=== PATIENT | female | born 1985 | race Caucasian/White ===

== ENCOUNTER 2018-01-15 10:58 | Emergency (ER) | payer BC ==
[2018-01-15] MEDS ORDERED: fentaNYL* 50 MCG/ML 2 ML VIAL (100 MCG VIAL) IV ONE (11:31)
[2018-01-15] MEDS ORDERED: NS 0.9% 1000 ML* 1,000 ML IV ONE (11:31)
[2018-01-15] MEDS ORDERED: Ondansetron INJ* 2 MG/ML VIAL IV ONE (11:31)
[2018-01-15 12:17] LABS: ABS Basophils 0 10^3/ul (0-0.2); ABS Eosinophils 0.1 10^3/ul (0-0.6); ABS Lymphocytes 1.9 10^3/ul (1.0-4.8); ABS Monocytes 0.3 10^3/ul (0-0.8); ABS Nucleated RBC 0 10^3/ul; Eosinophil % 2.3 % (0-6); Hematocrit 41 % (35-47); Hemoglobin 13.4 g/dl (12.0-16.0); Lymphocyte % 29.5 % (25-47); Mean Corpuscular HGB Conc 33 g/dl (31-36); Mean Corpuscular Hemoglobin 30 pg (27-31); Mean Corpuscular Volume 91 fL (80-97); Mean Platelet Volume 7.9 um3 (7.4-10.4); Nucleated Red Blood Cells % 0.1; Platelet Count 195 10^3/ul (150-450); Red Blood Count 4.46 10^6/ul (4.0-5.4); Red Cell Distribution Width 16 % (10.5-15); White Blood Count 6.3 10^3/ul (3.5-10.8)
[2018-01-15 12:36] LABS: EGFR Non-African American 145.4 (>60)
[2018-01-15 12:55] LABS: Urine Appearance Cloudy; Urine Blood 2+ (Negative); Urine Color Yellow; Urine Ketones Negative (Negative); Urine Protein Negative (Negative); Urine Specific Gravity 1.004 (1.010-1.030); Urine Urobilinogen Negative (Negative)
[2018-01-15] MEDS ORDERED: Iohexol 300* (CONTRAST) 10 ML SDV IV ONE (13:25)
--- NOTE | 2018-01-15 14:29 | RAD ---
CLINICAL HISTORY: Abdominal pain COMPARISON: February 02, 2013 TECHNIQUE: Multiple contiguous axial CT scans were obtained of the abdomen and pelvis after the administration of intravenous contrast. Coronal and sagittal multiplanar reformations are submitted for review. Oral contrast was administered. Delayed images were obtained through the abdomen and pelvis. FINDINGS: LUNG BASES: The lung bases are clear. LIVER: The liver is diffusely low in attenuation compared to the spleen. There are no focal hepatic parenchymal masses. BILE DUCTS: There is no intrahepatic or extrahepatic biliary dilatation. GALLBLADDER: The gallbladder is normal, without pericholecystic inflammatory change. PANCREAS: The pancreas is normal, without mass or ductal dilatation. SPLEEN: The spleen is at the upper limits of normal in size. UPPER GI TRACT: Evaluation of the gastrointestinal tract is limited by incomplete gastric distention. The upper GI tract is unremarkable. SMALL BOWEL AND MESENTERY: The small bowel is normal in contour, course, and caliber. There is no obstruction or dilatation. COLON: The colon is normal in contour, course, caliber. There is no pericolonic inflammatory change. There is a large amount of stool within the colon. ADRENALS: Normal bilaterally. KIDNEYS: The kidneys are normal in shape, size, contour, and axis. There is no hydronephrosis or nephrolithiasis. BLADDER: A suprapubic catheter is noted. PELVIC ORGANS: The uterus and adnexa are grossly normal for technique. AORTA: The aorta is normal. IVC: An IVC filter is noted. LYMPH NODES: There is no lymphadenopathy by size criteria. ABDOMINAL WALL: There is no evidence for abdominal wall hernia. BONES AND SOFT TISSUES: There is diffuse osteopenia. The patient is status post internal fixation of the left femur. There is moderate osteoarthritis of the hips. An intrathecal catheter is noted along the spine OTHER: An implantable pump is noted along the right anterior abdomen. IMPRESSION: 1. FATTY INFILTRATION OF THE LIVER. 2. SUPRAPUBIC CATHETER. 3. IVC FILTER. 4. DEGENERATIVE CHANGES. 5. NO ACUTE CT PATHOLOGY OF THE VISUALIZED ABDOMEN OR PELVIS.
[2018-01-15] MEDS ORDERED: fentaNYL* 50 MCG/ML 2 ML VIAL (100 MCG VIAL) IV SLOW PU ONE (14:36)
[2018-01-15] MEDS ORDERED: Sodium Phosphate ADULT ENEMA* 118 ml bottle PR ONE (15:11)
[2018-01-15] MEDS ORDERED: Magnesium CITRATE* 300 ML BTL PO ONE (15:11)
[2018-01-15 15:51] VITALS: BP 122/80
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
== END 2018-01-15 15:48 | disposition home or self-care (01) ==
LOC: ED 10:58
DX: R10.84 Generalized abdominal pain (principal); K59.00 Constipation, unspecified; Z32.02 Encounter for pregnancy test, result negative; K76.0 Fatty (change of) liver, not elsewhere classified; I31.9 Disease of pericardium, unspecified; N31.9 Neuromuscular dysfunction of bladder, unspecified; Z87.891 Personal history of nicotine dependence
CPT/HCPCS: 36415; 74177; 80053; 81003; 81015; 83690; 84702; 85025; 86140; 87086; 96361; 96374; 96375; 96376; 99284; A9270-GY; J2405; J3010; Q9967

== ENCOUNTER 2018-04-13 20:04 | Emergency (ER) | payer BC ==
[2018-04-13] MEDS ORDERED: NS 0.9% 1000 ML* 1,000 ML IV ONE (20:36)
[2018-04-13] MEDS ORDERED: HYDROmorphone INJ* 1 MG/ML CARPUJECT SYRINGE IV SLOW PU ONE (20:39)
[2018-04-13] MEDS ORDERED: tiZANidine TAB* 2 MG PO ONE (20:47)
[2018-04-13] MEDS ORDERED: HYDROmorphone INJ* 2 MG/ML CARPUJECT SYRINGE ONE (20:49)
[2018-04-13] MEDS ORDERED: HYDROmorphone INJ* 2 MG/ML CARPUJECT SYRINGE IV SLOW PU ONE (21:00)
[2018-04-13 21:26] LABS: ABS Basophils 0 10^3/ul (0-0.2); ABS Eosinophils 0.3 10^3/ul (0-0.6); ABS Lymphocytes 2.5 10^3/ul (1.0-4.8); ABS Monocytes 0.4 10^3/ul (0-0.8); ABS Neutrophils 3.9 10^3/ul (1.5-7.7); ABS Nucleated RBC 0 10^3/ul; Eosinophil % 4.3 % (0-6); Hematocrit 40 % (35-47); Hemoglobin 13.5 g/dl (12.0-16.0); Lymphocyte % 34.7 % (25-47); Mean Corpuscular HGB Conc 34 g/dl (31-36); Mean Corpuscular Hemoglobin 30 pg (27-31); Mean Corpuscular Volume 89 fL (80-97); Nucleated Red Blood Cells % 0.1; Platelet Count 198 10^3/ul (150-450); Red Blood Count 4.47 10^6/ul (4.00-5.40); Red Cell Distribution Width 15 % (10.5-15); White Blood Count 7.2 10^3/ul (3.5-10.8)
[2018-04-13 21:33] LABS: INR 1.03 (0.77-1.02)
[2018-04-13 21:36] LABS: EGFR Non-African American 160.5 (>60)
--- NOTE | 2018-04-13 21:38 | RAD ---
Indication: Seizure. History of seizure disorder. Previous brain contusion /traumatic injury /spinal cord injury. Comparison: August 11, 2014 Technique: Noncontrast CT vertex of skull through foramen magnum. Report: Large region of encephalomalacia at the RIGHT frontal lobe is chronic. Associated asymmetric enlargement of the frontal horn of the RIGHT lateral ventricle. No new region of plaza matter white matter obscuration or intracranial hemorrhage evident. Negative for mass effect. Negative for sulcal effacement. Patent basal cisterns. Unremarkable partially visualized orbital contents. Unremarkable calvarium and skull base. Clear visualized paranasal sinuses and mastoid air spaces. Unremarkable scalp. IMPRESSION: #. No CT evidence for acute intracranial abnormality. #. 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
[2018-04-13 21:46] LABS: Urine Appearance Clear; Urine Blood 1+ (Negative); Urine Color Straw; Urine Ketones Negative (Negative); Urine Protein Negative (Negative); Urine Specific Gravity 1.003 (1.010-1.030); Urine Urobilinogen Negative (Negative)
[2018-04-13] MEDS ORDERED: Ondansetron ODT TAB* 4 MG PO ONE (22:11)
[2018-04-13] MEDS ORDERED: Topiramate TAB(*) 100 MG ONE (22:13)
[2018-04-13] MEDS ORDERED: Ondansetron ODT TAB* 4 MG ONE (22:13)
[2018-04-13 22:15] VITALS: BP 105/64
[2018-04-13] MEDS ORDERED: Topiramate TAB(*) 100 MG PO ONE (22:15)
[2018-04-13] MEDS: Topiramate TAB(*) 100 MG PO ONE (22:16)
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
== END 2018-04-13 22:42 | disposition home or self-care (01) ==
LOC: ED 20:04
DX: R56.9 Unspecified convulsions (principal); Z87.891 Personal history of nicotine dependence
CPT/HCPCS: 36415; 70450; 80053; 80320; 81003; 81015; 83735; 84484; 84702; 85025; 85610; 85730; 87086; 93005; 96374; 96376; 99284; A9270-GY; G0480; J1170

== ENCOUNTER 2018-05-12 15:13 | Emergency (ER) | payer BC ==
[2018-05-12] MEDS ORDERED: NS 0.9% 1000 ML* 1,000 ML IV ONE (15:37)
[2018-05-12] MEDS ORDERED: Acetaminophen TAB* 325 MG PO ONE (15:43)
--- NOTE | 2018-05-12 15:48 | ED ---
Syncope/Near Syncope - HPI Summary HPI Summary: This is zack Portillo documenting for attending Dr. Quintin Spence This patient is a 33 year old F presenting to [facility] accompanied by 2 friends with a chief complaint of sz since 1500. Friends witnessed 3x tonic clonic szs, 2 at home, 1 en route in the ambulance. Pt was given 5 mg versed by EMS. According to her friends, pt was in bed, wanted to get up but hand was numb, experienced arm spasm, numbness in arm, face, and chest. Once in living room, eyes fluttering, convulsions started. PMHx paraplegic, szs. Pt denies missing any medication doses. She notes that she started Rexult this AM for PMHx depression. - History Of Current Complaint Chief Complaint: EDSeizure Time Seen by Provider: 05/12/18 15:25 Hx Obtained From: Patient, Family/Stress Test Technician Onset/Duration: Sudden Onset, Resolved Timing: Seconds - seconds Context: Witnessed, Loss Of Consciousness Activity At Onset: At Rest Associated Head Trauma: No Aggravating Factor(s): Nothing Alleviating Factor(s): Nothing Associated Signs And Symptoms: Seizure Frequency: Episodes x___ - 3 - Allergies/Home Medications Allergies/Adverse Reactions: Allergies Allergy/AdvReac Type Severity Reaction Status Date / Time Morpholine Analogues Allergy Intermediate Hives Verified 05/12/18 15:29 PMH/Surg Hx/FS Hx/Imm Hx Endocrine/Hematology History: Denies: Hx Diabetes Cardiovascular History: Reports: Other Cardiovascular Problems/Disorders - pericarditis Denies: Hx Hypertension Respiratory History: Reports: Hx Pneumonia - HX PNEUMONIA MULTIPLE TIMES, Other Respiratory Problems/Disorders - lung puncture with colapse with water seal GI History: Reports: Other GI Disorders - nausea with pain new lump on abdomen History: Reports: Other Problems/Disorders - neurogenic bladder Denies: Hx Renal Disease Musculoskeletal History: Reports: Other Musculoskeletal History - wheel chair bound inj, spinal cord Sensory History: Denies: Hx Legally Blind, Hx Deafness Opthamlomology History: Denies: Hx Legally Blind EENT History: Denies: Hx Deafness Neurological History: Reports: Hx Seizures, Other Neuro Impairments/Disorders - 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 proceedures. Infectious Disease History: No Infectious Disease History: Denies: Traveled Outside the [place] in Last 30 Days - Family History Known Family History: Positive: Cardiac Disease - [place] - maternal grandfather, Other - hypothyroidism - mother - Social History Occupation: Disabled Alcohol Use: None Substance Use Type: Reports: None Smoking Status (MU): Former Smoker Review of Systems Negative: Fever Positive: incontinence Positive: Decreased ROM - paraplegic Positive: Numbness, Syncope - sz All Other Systems Reviewed And Are Negative: Yes Physical Exam - Summary Physical Exam Summary: Appearance: Well appearing, no pain distress Skin: warm, dry, reflects adequate perfusion Head/face: normal Eyes: EOMI, JENNIFER ENT: normal Neck: supple, non-tender Respiratory: CTA, breath sounds present Cardiovascular: RRR, pulses symmetrical Abdomen: non-tender, soft Bowel: present Musculoskeletal: paraplegic Neuro: paraplegic A&Ox3 Triage Information Reviewed: Yes Vital Signs On Initial Exam: Initial Vitals Temp Pulse Resp BP Pulse Ox 97.4 F 91 13 111/74 97 05/12/18 15:31 05/12/18 15:31 05/12/18 15:31 05/12/18 15:31 05/12/18 15:31 Vital Signs Reviewed: Yes Diagnostics - Vital Signs Vital Signs Temp Pulse Resp BP Pulse Ox 05/12/18 15:31 97.4 F 91 13 111/74 97 - Laboratory Result Diagrams: 05/12/18 15:52 05/12/18 15:52 Lab Statement: Any lab studies that have been ordered have been reviewed, and results considered in the medical decision making process. - Radiology CXR Xray Interpretation: Positive (See Comments) Radiology Interpretation Completed By: Radiologist - Subtle right basilar infiltrate. - EKG 1550 Cardiac Rate: NL - 89 EKG Rhythm: Sinus Rhythm ST Segment: Normal Ectopy: None EKG Interpretation: No acute changes. Re-Evaluation - Re-Evaluation First Eval Re-Evaluation Time: 16:57 Change: Improved Comment: Discussed discharge. Course/Dx Course Of Treatment: A 33-year-old F presents to the ED with a CC of sz at 1500. (+) 3x tonic-clonic episodes, numbness in hands, arms, face, chest. (-) missed med doses. PMHx paraplegia, sz, depression. A CXR reveals subtle right basilar infiltrate. An EKG reveals nl sinus rythym at 89 BPM, no acute changes. In the ED course, pt was given . - Diagnoses Differential Diagnosis/HQI/PQRI: Positive: Seizure, Other - pneumonia Provider Diagnoses: Seizures, Pneumonia - Physician Notifications Discussed Care of Patient With: Neftali Martin Time Discussed With Above Provider: 15:55 Instructed by Provider To: Other - Will see pt in the ED. Discharge - Sign-Out/Discharge Documenting (check all that apply): Patient Departure - Discharge - Discharge Plan Condition: Stable Disposition: HOME Prescriptions: Azithromycin TAB* [Zithromax TAB (Z-BRITTANY) 250 mg #6 tabs] 250 mg PO DAILY #4 tab lamoTRIgine TAB(*) [Lamictal TAB(*)] 250 mg PO BEDTIME #30 tab Patient Education Materials: Epilepsy (ED), Pneumonia (ED) Referrals: Macho Galdamez MD [Primary Care Provider] - 3 Days Additional Instructions: Return to the emergency department for any changes in mental status. - Billing Disposition and Condition Condition: STABLE Disposition: Home
[2018-05-12 16:19] LABS: ABS Basophils 0 10^3/ul (0-0.2); ABS Eosinophils 0.3 10^3/ul (0-0.6); ABS Lymphocytes 2.6 10^3/ul (1.0-4.8); ABS Monocytes 0.4 10^3/ul (0-0.8); ABS Neutrophils 2.7 10^3/ul (1.5-7.7); ABS Nucleated RBC 0 10^3/ul; Eosinophil % 4.5 % (0-6); Hematocrit 37 % (35-47); Hemoglobin 12.7 g/dl (12.0-16.0); Lymphocyte % 43.6 % (25-47); Mean Corpuscular HGB Conc 34 g/dl (31-36); Mean Corpuscular Hemoglobin 30 pg (27-31); Mean Corpuscular Volume 88 fL (80-97); Mean Platelet Volume 8.5 um3 (7.4-10.4); Nucleated Red Blood Cells % 0.1; Platelet Count 197 10^3/ul (150-450); Red Blood Count 4.23 10^6/ul (4.00-5.40); Red Cell Distribution Width 15 % (10.5-15); White Blood Count 5.9 10^3/ul (3.5-10.8)
[2018-05-12] MEDS ORDERED: lamoTRIgine TAB(*) 100 MG PO ONE ×2 (16:29→17:19)
--- NOTE | 2018-05-12 16:42 | RAD ---
INDICATION: CHF COMPARISON: August 13, 2015 TECHNIQUE: An AP portable view obtained at 1623 hours is submitted. FINDINGS: Bones/Soft Tissues: There are no acute bony findings. Cardiomediastinal: The cardiomediastinal silhouette is normal. The pulmonary vascularity is normal. Lungs: There are subtle infiltrate in the right lung base significant improved from earlier imaging.. Pleura: There are no pleural effusions. Other: None IMPRESSION: SUBTLE RIGHT BASILAR INFILTRATE.
[2018-05-12 16:44] LABS: EGFR Non-African American 155.5 (>60)
[2018-05-12] MEDS ORDERED: Azithromycin TAB* 250 MG PO ONE ×2 (16:54→17:19)
[2018-05-12 17:35] VITALS: BP 125/86
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
== END 2018-05-12 17:34 | disposition home or self-care (01) ==
LOC: ED 15:13
DX: G40.909 Epilepsy, unspecified, not intractable, without status epilepticus (principal); J18.9 Pneumonia, unspecified organism; G82.20 Paraplegia, unspecified; Z82.49 Family history of ischemic heart disease and other diseases of the circulatory system; Z83.49 Family history of other endocrine, nutritional and metabolic diseases; Z87.891 Personal history of nicotine dependence
CPT/HCPCS: 36415; 71045; 80053; 80175; 80201; 83735; 83880; 84484; 84702; 85025; 93005; 96360; 99284; A9270-GY

== ENCOUNTER 2018-08-09 14:21 | Emergency (ER) | payer BC ==
[2018-08-09] MEDS ORDERED: HYDROmorphone TAB* 2 MG PO ONE (14:37)
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
--- NOTE | 2018-08-09 15:57 | RAD ---
INDICATION: Left knee injury. TECHNIQUE: 2 views of the left knee were obtained. FINDINGS: The bones appear osteoporotic. The patient is status post operative reduction internal fixation. The distal portion of an intramedullary shavon transfixed with 2 distal surgical screws is noted in the distal femur. There is a partially visualized healed fracture of the distal femur. No joint effusion or acute fracture is seen. IMPRESSION: POSTSURGICAL CHANGES, NO EVIDENCE FOR ACUTE FRACTURE.
[2018-08-09 16:53] VITALS: BP 117/69
== END 2018-08-09 16:51 | disposition home or self-care (01) ==
LOC: ED 14:21
DX: S82.842A Displaced bimalleolar fracture of left lower leg, initial encounter for closed fracture (principal); V00.818A Other accident with wheelchair (powered), initial encounter; Y92.9 Unspecified place or not applicable; M85.872 Other specified disorders of bone density and structure, left ankle and foot; G83.89 Other specified paralytic syndromes; F32.9 Major depressive disorder, single episode, unspecified; Z72.0 Tobacco use
CPT/HCPCS: 99282; A9270-GY

== ENCOUNTER 2018-10-04 17:50 | Emergency (ER) | payer BC ==
[2018-10-04] MEDS ORDERED: LORazepam INJ* 2 MG/ML 1 ML VIAL ONE (18:03)
[2018-10-04] MEDS ORDERED: NS 0.9% 1000 ML* 1,000 ML IV ONE (18:05)
[2018-10-04] MEDS ORDERED: LORazepam INJ* 2 MG/ML 1 ML VIAL IV PUSH ONE (18:06)
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
[2018-10-04 18:30] LABS: ABS Basophils 0 10^3/ul (0-0.2); ABS Eosinophils 0.2 10^3/ul (0-0.6); ABS Lymphocytes 2.3 10^3/ul (1.0-4.8); ABS Monocytes 0.4 10^3/ul (0-0.8); ABS Neutrophils 2.8 10^3/ul (1.5-7.7); ABS Nucleated RBC 0 10^3/ul; Eosinophil % 3.3 %; Hematocrit 41 % (35-47); Hemoglobin 13.6 g/dl (12.0-16.0); Lymphocyte % 39.9 %; Mean Corpuscular HGB Conc 33 g/dl (31-36); Mean Corpuscular Hemoglobin 31 pg (27-31); Mean Corpuscular Volume 92 fL (80-97); Mean Platelet Volume 8.3 fL (7.4-10.4); Nucleated Red Blood Cells % 0; Platelet Count 196 10^3/ul (150-450); Red Blood Count 4.45 10^6/ul (4.00-5.40); Red Cell Distribution Width 15 % (10.5-15); White Blood Count 5.7 10^3/ul (3.5-10.8)
[2018-10-04 18:38] LABS: INR 0.97 (0.77-1.02)
[2018-10-04 18:39] LABS: Activated Partial Thrombo Time 33.7 seconds (26.0-36.3)
[2018-10-04] MEDS ORDERED: HYDROmorphone INJ* 2 MG/ML CARPUJECT SYRINGE IV SLOW PU ONE (18:40)
[2018-10-04 18:48] LABS: Albumin 3.8 g/dL (3.2-5.2); Albumin/Globulin Ratio 1.4 (1-3); Calcium 8.8 mg/dL (8.6-10.3); EGFR Non-African American 199.9 (>60); Globulin 2.8 g/dL (2-4); Magnesium 1.9 mg/dL (1.9-2.7); Potassium 3.9 mmol/L (3.5-5.0); Total Bilirubin 0.2 mg/dL (0.2-1.0); Total Protein 6.6 g/dL (6.4-8.9)
[2018-10-04 18:55] LABS: HCG Pregnancy 0.94 mIU/mL
[2018-10-04] MEDS ORDERED: HYDROmorphone INJ1* 1 MG/ML SYRINGE IV SLOW PU ONE (19:00)
[2018-10-04] MEDS ORDERED: Ondansetron INJ* 2 MG/ML VIAL IV ONE (19:25)
[2018-10-04 20:12] VITALS: BP 109/71
== END 2018-10-04 20:41 | disposition home or self-care (01) ==
LOC: ED 17:50
DX: G40.909 Epilepsy, unspecified, not intractable, without status epilepticus (principal); G83.9 Paralytic syndrome, unspecified; Z86.73 Personal history of transient ischemic attack (TIA), and cerebral infarction without residual deficits; V89.2XXS Person injured in unspecified motor-vehicle accident, traffic, sequela; I31.9 Disease of pericardium, unspecified; Z72.0 Tobacco use; G93.89 Other specified disorders of brain
CPT/HCPCS: 36415; 70450; 80053; 83735; 84702; 85025; 85610; 85730; 96361; 96374; 96375; 99284; J1170; J2060; J2405

== ENCOUNTER 2018-11-19 14:14 | Inpatient (IN) | payer BC ==
[2018-11-19] MEDS ORDERED: Albuterol 2.5 MG/3 ML NEB.SOL* (0.083%) INH PRN (15:01)
[2018-11-19] MEDS ORDERED: Levofloxacin 750 MG IVPREMIX(* 750 MG/150 ML BAG IVPB ONE (15:01)
[2018-11-19] MEDS ORDERED: NS 0.9% 1000 ML** 1,000 ML IV.FLUID IV ONE (15:01)
[2018-11-19] MEDS ORDERED: Ketorolac INJ* 30 MG/ML 1 ML VIAL IV ONE (15:01)
[2018-11-19] MEDS ORDERED: Piperacillin/Tazobac ADVAN(*) 3.375 GM in NS 0.9% 100 ML* 100 ML IVPB ONE (15:01)
--- NOTE | 2018-11-19 15:08 | ED ---
Shortness of Breath - HPI Summary HPI Summary: Patient is a 33-year-old female with a history of paraplegia since 2008% to the ED with worsening SOB, increased WOB, diaphoresis and distress. She was seen by her PCP last week and was placed on doxycycline. She has been on this medication 7 days. She was diagnosed with pneumonia from her PCP, however no x -ray was obtained at the time. Despite doxycycline, she has continued to worsen and now requires oxygen. D/t paraplegia she is unable to clear lungs well with cough. She endorses low grade subjective fevers, sweats and chills. Also endorses darkened urine. Endorses fatigue. Endorses chest pain with attempting to cough, but otherwise denies CP. - History of Current Complaint Time Seen by Provider: 11/19/18 15:00 Hx Obtained From: Patient, Family/Community Outreach Worker Onset/Duration: Gradual Onset Timing: Constant Current Severity: Severe Dyspnea At: Rest Aggrevating Factors: Deep Breaths, Recumbent Position Alleviating Factors: Oxygen, Upright Position - Risk Factors Pulmonary Embolism: Negative Cardiac: Negative - Allergy/Home Medications Allergies/Adverse Reactions: Allergies Allergy/AdvReac Type Severity Reaction Status Date / Time Morpholine Analogues Allergy Intermediate Hives Verified 05/12/18 15:29 PMH/Surg Hx/FS Hx/Imm Hx Previously Healthy: Yes Endocrine/Hematology History: Denies: Hx Diabetes Cardiovascular History: Reports: Other Cardiovascular Problems/Disorders - pericarditis Denies: Hx Hypertension Respiratory History: Reports: Hx Pneumonia - HX PNEUMONIA MULTIPLE TIMES, Other Respiratory Problems/Disorders - lung puncture with colapse with water seal GI History: Reports: Other GI Disorders - nausea with pain new lump on abdomen History: Reports: Other Problems/Disorders - neurogenic bladder Denies: Hx Renal Disease Musculoskeletal History: Reports: Other Musculoskeletal History - wheel chair bound inj, spinal cord; 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 proceedures. Infectious Disease History: Denies: Traveled Outside the [place] in Last 30 Days - Family History Known Family History: Positive: Cardiac Disease - [place] - maternal grandfather, Other - hypothyroidism - mother - Social History Occupation: Unemployed, Disabled Lives: With Family Alcohol Use: None Hx Substance Use: No Substance Use Type: Reports: None Hx Tobacco Use: Yes Smoking Status (MU): Light Every Day Tobacco Smoker Review of Systems Positive: Fatigue, Skin Diaphoresis. Negative: Fever, Chills Negative: Sore Throat, Ear Ache, Nasal Discharge Positive: Chest Pain Positive: Shortness Of Breath, Cough Negative: Abdominal Pain, Vomiting, Diarrhea, Nausea Genitourinary: Negative Positive: no symptoms reported, see HPI Negative: Arthralgia, Myalgia Skin: Negative Neurological: Negative All Other Systems Reviewed And Are Negative: Yes Physical Exam Triage Information Reviewed: Yes Vital Signs Reviewed: Yes Appearance: Positive: Ill-Appearing Skin: Positive: Warm, Skin Color Reflects Adequate Perfusion Head/Face: Positive: Normal Head/Face Inspection Eyes: Positive: EOMI, JENNIFER, Conjunctiva Clear ENT: Positive: Nasal congestion, Nasal drainage. Negative: Tonsillar swelling, Tonsillar exudate, Dental tenderness, Sinus tenderness Neck: Positive: Supple Respiratory/Lung Sounds: Positive: Rhonchi, Wheezes, Fatigue Cardiovascular: Positive: RRR, Pulses are Symmetrical in both Upper and Lower Extremities Musculoskeletal: Positive: Normal, Strength/ROM Intact Neurological: Positive: Sensory/Motor Intact, Alert, Oriented to Person Place, Time, Speech Normal Psychiatric: Positive: Normal, Affect/Mood Appropriate AVPU Assessment: Alert Diagnostics - Laboratory Result Diagrams: 11/19/18 15:42 11/19/18 15:42 Lab Statement: Any lab studies that have been ordered have been reviewed, and results considered in the medical decision making process. Course/Dx - Course Course Of Treatment: Patient is a 33-year-old paraplegic presenting to the ED with worsening SOB, increased WOB, difficulty with coughing, fevers, sweats, chills. She was seen by her PCP last week and was placed on doxycycline twice a day. She has been on this medication times sent days. She states despite the doxycycline, she continues to have worsening SOB and fatigue. She also endorses diaphoresis. She states due to her paraplegia, she is unable to cough up sputum. Endorses darkened urine. On arrival to the ED her sat was 82% on room air. Patient does not use O2 at home at baseline. She was immediately placed on 4L O2 which improved her sat to 94%. Duo-Neb given on arrival. Patient is afebrile at 99.4. Tachycardic on arrival at 107. Respirations 26. Influenza obtained and is positive. Based on VS, septic protocol initiated with zosyn, Levaquin and 2L fluids. Toradol given for chest pain. EKG: NSR. Trop 0.00. Chest x-ray obtained which shows: INTERVAL APPEARANCE OF ILL- DEFINED PATCHY DENSITY OVERLYING THE RIGHT LUNG DESCRIBED ABOVE. PHARYNGEAL DIAGNOSIS INCLUDES PNEUMONIA OR INFILTRATE. A FOLLOW-UP CHEST X-RAY AFTER AN APPROPRIATE COURSE OF THERAPY IS ADVISED TO ASCERTAIN RESOLUTION. Labs show no leukocytosis. Discussed case with hospitalist, Dr. Avina who agrees to admit. Still pending UA. - Diagnoses Differential Diagnosis/HQI/PQRI: Positive: Bronchitis Provider Diagnoses: Pneumonia, Influenza A - Physician Notifications Discussed Care of Patient With: Juan Carlos Avina Instructed by Provider To: Admit As Inpatient - Critical Care Time Critical Care Time: 30-74 min Discharge - Sign-Out/Discharge Documenting (check all that apply): Patient Departure Patient Received Moderate/Deep Sedation with Procedure: No - Discharge Plan Condition: Fair Disposition: ADMITTED TO [facility] Referrals: Macho Galdamez MD [Primary Care Provider] - - Billing Disposition and Condition Condition: FAIR Disposition: Admitted to [facility]
[2018-11-19 15:36] LABS: Influenza A Molecular POSITIVE (Negative)
[2018-11-19 15:50] LABS: ABS Basophils 0 10^3/ul (0-0.2); ABS Eosinophils 0.1 10^3/ul (0-0.6); ABS Monocytes 0.8 10^3/ul (0-0.8); ABS Neutrophils 7.4 10^3/ul (1.5-7.7); ABS Nucleated RBC 0 10^3/ul; Eosinophil % 1.1 %; Hematocrit 41 % (35-47); Hemoglobin 13.6 g/dl (12.0-16.0); Lymphocyte % 19.1 %; Mean Corpuscular HGB Conc 34 g/dl (31-36); Mean Corpuscular Hemoglobin 31 pg (27-31); Mean Corpuscular Volume 91 fL (80-97); Nucleated Red Blood Cells % 0; Platelet Count 243 10^3/ul (150-450); Red Blood Count 4.46 10^6/ul (4.00-5.40); Red Cell Distribution Width 15 % (10.5-15); White Blood Count 10.4 10^3/ul (3.5-10.8)
[2018-11-19 15:58] LABS: Activated Partial Thrombo Time 38.2 seconds (26.0-36.3); INR 1.17 (0.77-1.02)
[2018-11-19 16:39] LABS: Albumin/Globulin Ratio 1.1 (1-3); BUN/Creatinine Ratio 27.5 (8-20); C Reactive Protein 133.84 mg/L (<8.01); Calcium 9.2 mg/dL (8.6-10.3); EGFR African American 221.1 (>60); EGFR Non-African American 182.7 (>60); Globulin 3.5 g/dL (2-4); Total Bilirubin 0.5 mg/dL (0.2-1.0); Total Protein 7.5 g/dL (6.4-8.9)
[2018-11-19] MEDS ORDERED: LORazepam TAB(*) 0.5 MG PO PRN (17:14)
[2018-11-19] MEDS ORDERED: Polyethylene Glycol 3350* 17 GM PACKET PO PRN (17:14)
[2018-11-19] MEDS ORDERED: tiZANidine TAB* 2 MG PO PRN (17:14)
[2018-11-19] MEDS ORDERED: BACLOFEN INTRATHEC SCH (17:15)
[2018-11-19 17:19] LABS: Erythrocyte Sed Rate 60 mm/Hr (0-14)
[2018-11-19 17:30] LABS: Urine Appearance Cloudy; Urine Bacteria Absent (Absent); Urine Bilirubin Negative (Negative); Urine Blood Negative (Negative); Urine Color Amber; Urine Glucose Negative (Negative); Urine Ketones 1+ (Negative); Urine Nitrite Negative (Negative); Urine Protein 1+(30 mg/dL) (Negative); Urine Red Blood Cell 3+(>10/hpf) (Absent); Urine Specific Gravity 1.025 (1.010-1.030); Urine Squamous Epithelial Cell Present (Absent); Urine Urobilinogen Negative (Negative); Urine White Blood Cell 2+(11-20/hpf) (Absent)
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
[2018-11-19] MEDS ORDERED: ARIPiprazole TAB* 20 MG PO SCH (18:00)
[2018-11-19] MEDS ORDERED: lamoTRIgine TAB(*) 100 MG PO SCH (18:00)
[2018-11-19] MEDS: Ketorolac INJ* 15 MG/ML 1 ML VIAL IV PUSH PRN (18:26)
[2018-11-19] MEDS: Topiramate TAB(*) 100 MG PO SCH (20:00)
[2018-11-19] MEDS: QUEtiapine TAB* 100 MG PO SCH (20:00)
[2018-11-19] MEDS: Acetaminophen TAB* 325 MG PO PRN (20:00)
[2018-11-19] MEDS: OXcarbazepine TAB(*) 300 MG PO SCH (20:00)
[2018-11-19] MEDS: lamoTRIgine TAB(*) 100 MG PO SCH (20:00)
[2018-11-19] MEDS: ARIPiprazole TAB* 20 MG PO SCH (20:01)
[2018-11-19] MEDS: Oseltamivir CAP* 75 MG CAP PO SCH (20:01)
[2018-11-19] MEDS ORDERED: traMADol TAB* 50 MG PO ONE (21:24)
[2018-11-20] MEDS: Acetaminophen TAB* 325 MG PO PRN ×3 (00:51→21:01)
[2018-11-20] MEDS: Ketorolac INJ* 15 MG/ML 1 ML VIAL IV PUSH PRN (00:57)
[2018-11-20] MEDS: Zolpidem TAB* 5 MG PO PRN ×2 (01:08→22:55)
[2018-11-20] MEDS: Topiramate TAB(*) 100 MG PO SCH ×2 (08:26→21:02)
[2018-11-20] MEDS: OXcarbazepine TAB(*) 300 MG PO SCH ×2 (08:26→21:01)
[2018-11-20] MEDS: Rivaroxaban TAB(*) 20 MG TAB PO SCH (08:27)
[2018-11-20] MEDS: Docusate CAP* 100 MG PO SCH (08:28)
[2018-11-20] MEDS: lamoTRIgine TAB(*) 100 MG PO SCH ×2 (08:28→21:02)
[2018-11-20] MEDS: FLUoxetine CAP* 20 MG PO SCH (08:28)
[2018-11-20] MEDS: Oseltamivir CAP* 75 MG CAP PO SCH ×2 (08:28→21:01)
[2018-11-20] MEDS ORDERED: ESLICARBAZEPINE ACETATE 800 MG PO SCH (09:00)
[2018-11-20] MEDS ORDERED: HYDROcodone/ACETAMIN 5-325 MG* 1 TAB PO PRN (11:00)
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
[2018-11-20 13:10] LABS: BUN/Creatinine Ratio 25.8 (8-20); Calcium 8.5 mg/dL (8.6-10.3); EGFR African American 296.7 (>60); EGFR Non-African American 245.2 (>60)
[2018-11-20] MEDS ORDERED: Ondansetron INJ* 2 MG/ML VIAL IV PRN (14:03)
[2018-11-20] MEDS: HYDROmorphone INJ1* 1 MG/ML SYRINGE IV SLOW PU PRN ×2 (18:23→22:50)
[2018-11-20] MEDS: Levofloxacin 750 MG IVPREMIX(* 750 MG/150 ML BAG IVPB SCH (19:35)
[2018-11-20] MEDS: QUEtiapine TAB* 100 MG PO SCH (21:01)
[2018-11-20] MEDS: ARIPiprazole TAB* 20 MG PO SCH (21:12)
[2018-11-21] MEDS: HYDROmorphone INJ1* 1 MG/ML SYRINGE IV SLOW PU PRN ×4 (06:37→19:48)
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
[2018-11-21] MEDS: lamoTRIgine TAB(*) 100 MG PO SCH ×2 (10:45→21:17)
[2018-11-21] MEDS: Topiramate TAB(*) 100 MG PO SCH ×2 (10:45→21:17)
[2018-11-21] MEDS: Oseltamivir CAP* 75 MG CAP PO SCH ×2 (10:45→21:16)
[2018-11-21] MEDS: Docusate CAP* 100 MG PO SCH (10:46)
[2018-11-21] MEDS: OXcarbazepine TAB(*) 300 MG PO SCH ×2 (10:46→21:17)
[2018-11-21] MEDS: FLUoxetine CAP* 20 MG PO SCH (10:46)
[2018-11-21] MEDS: Rivaroxaban TAB(*) 20 MG TAB PO SCH (10:46)
[2018-11-21] MEDS: Levofloxacin 750 MG IVPREMIX(* 750 MG/150 ML BAG IVPB SCH (17:00)
[2018-11-21] MEDS: ARIPiprazole TAB* 20 MG PO SCH (21:16)
[2018-11-21] MEDS: QUEtiapine TAB* 100 MG PO SCH (21:17)
[2018-11-22] MEDS: Zolpidem TAB* 5 MG PO PRN (00:34)
[2018-11-22] MEDS: HYDROmorphone INJ1* 1 MG/ML SYRINGE IV SLOW PU PRN ×3 (00:34→09:32)
[2018-11-22] MEDS: Acetaminophen TAB* 325 MG PO PRN (07:27)
[2018-11-22] MEDS: OXcarbazepine TAB(*) 300 MG PO SCH (09:31)
[2018-11-22] MEDS: lamoTRIgine TAB(*) 100 MG PO SCH (09:31)
[2018-11-22] MEDS: FLUoxetine CAP* 20 MG PO SCH (09:31)
[2018-11-22] MEDS: Docusate CAP* 100 MG PO SCH (09:31)
[2018-11-22] MEDS: Oseltamivir CAP* 75 MG CAP PO SCH (09:31)
[2018-11-22] MEDS: Rivaroxaban TAB(*) 20 MG TAB PO SCH (09:31)
[2018-11-22] MEDS: Topiramate TAB(*) 100 MG PO SCH (09:32)
--- NOTE | 2018-11-22 12:06 | PN ---
"Progress Note - Progress Note Date of Service: 11/22/18 Note: This report was requested by: Cole Burgos | Reference #: [id number] Others' Prescriptions Patient Name: Mariajose Preciado Date: 1985 Address: [address] [place], [place] [id number] Sex: Female Rx Written Rx Dispensed Drug Quantity Days Supply Prescriber Name 10/02/2018 11/06/2018 zolpidem tartrate 5 mg tablet 30 30 Macho Galdamez MD 10/10/2018 10/11/2018 lorazepam 0.5 mg tablet 90 30 Suleiman Darnell MD 10/02/2018 10/02/2018 zolpidem tartrate 5 mg tablet 30 30 Macho Galdamez MD 08/09/2018 08/09/2018 oxycodone-acetaminophen 5-325 mg tablet 20 5 Ayo Oleary MD 06/14/2018 08/02/2018 zolpidem tartrate 5 mg tablet 30 30 Macho Galdamez MD 06/13/2018 06/18/2018 lorazepam 0.5 mg tablet 30 10 Suleiman Darnell MD 06/14/2018 06/18/2018 zolpidem tartrate 5 mg tablet 30 30 Macho Galdamez MD 04/25/2018 05/15/2018 lyrica 75 mg capsule 60 30 Vero Spivey 05/13/2018 05/15/2018 lorazepam 0.5 mg tablet 10 5 Neftali Martin MD 08/30/2017 01/17/2018 zolpidem tartrate 5 mg tablet 30 30 Macho Galdamez MD 08/30/2017 11/23/2017 zolpidem tartrate 5 mg tablet 30 30 Macho Galdamez MD"
--- NOTE | 2018-11-22 12:12 | PN ---
Progress Note - Progress Note Date of Service: 11/22/18 Note: Time spent on discharge including exam of pt, discussion with patient, CM, nurse , review of EMR and preparation of discharge documents is 45 minutes.
[2018-11-22 12:32] VITALS: BP 98/53
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
== END 2018-11-22 15:00 | disposition home or self-care (01) | DRG 139 ==
LOC: ED 14:14 → MEDTELE 16:20 → OBSVTOIN 11-20 12:02
PROVIDERS: ADMIT Internal Medicine; ATTEND Internal Medicine
DX: J10.00 Influenza due to other identified influenza virus with unspecified type of pneumonia (principal); G82.50 Quadriplegia, unspecified; G82.20 Paraplegia, unspecified; R56.9 Unspecified convulsions; F41.9 Anxiety disorder, unspecified; M81.0 Age-related osteoporosis without current pathological fracture; F32.9 Major depressive disorder, single episode, unspecified; Z87.440 Personal history of urinary (tract) infections; Z86.718 Personal history of other venous thrombosis and embolism; Z87.891 Personal history of nicotine dependence; Z88.8 Allergy status to other drugs, medicaments and biological substances; Z82.49 Family history of ischemic heart disease and other diseases of the circulatory system; Z56.0 Unemployment, unspecified; Z79.01 Long term (current) use of anticoagulants; Z83.49 Family history of other endocrine, nutritional and metabolic diseases; Z93.59 Other cystostomy status; Z97.8 Presence of other specified devices
CPT/HCPCS: 36415; 71046; 80048; 80053; 81003; 81015; 82803; 83605; 84484; 85025; 85379; 85610; 85652; 85730; 86140; 87040; 87086; 87899; 93005; 99284; A9270-GY; G0378; G8996-GN-CI; G8997-GN-CI; G8998-GN-CI; J1170; J1885; J2405; J2543

== ENCOUNTER 2019-02-20 15:42 | Inpatient (IN) | payer BC ==
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
[2019-02-20] MEDS ORDERED: oxyCODONE/Acetamin 5/325 MG* TAB PO ONE (16:48)
[2019-02-20 16:59] LABS: Hematocrit 39 % (35-47); Hemoglobin 13.1 g/dL (12.0-16.0); Mean Corpuscular HGB Conc 34 g/dL (31-36); Mean Corpuscular Hemoglobin 32 pg (27-31); Mean Corpuscular Volume 94 fL (80-97); Mean Platelet Volume 9.4 fL (7.4-10.4); Platelet Count 105 10^3/uL (150-450); Red Blood Count 4.12 10^6 /uL (3.70-4.87); Red Cell Distribution Width 17 % (10.5-15); White Blood Count 8.6 10^3/uL (3.5-10.8)
[2019-02-20 17:12] LABS: Activated Partial Thrombo Time 39.4 seconds (26.0-36.3); INR 1.83 (0.82-1.09)
[2019-02-20 17:16] LABS: ALT 18 U/L (7-52); AST 35 U/L (13-39); Albumin 3.6 g/dL (3.2-5.2); Albumin/Globulin Ratio 1.2 (1-3); Alkaline Phosphatase 73 U/L (34-104); Anion Gap 8 mmol/L (2-11); BUN/Creatinine Ratio 31.8 (8-20); Blood Urea Nitrogen 21 mg/dL (6-24); CO2 Carbon Dioxide 18 mmol/L (22-32); Calcium 9.4 mg/dL (8.6-10.3); Chloride 105 mmol/L (101-111); EGFR Non-African American 102.5 (>60); Glucose 124 mg/dL (70-100); Potassium 3.5 mmol/L (3.5-5.0); Sodium 131 mmol/L (135-145); Total Protein 6.6 g/dL (6.4-8.9)
[2019-02-20 17:18] LABS: Troponin I 0.01 ng/mL (<0.04)
[2019-02-20] MEDS ORDERED: Albuterol/Ipratropium NEB.SOL* Albuterol 2.5 MG/Ipratropium 0.5 MG 3 ML INH ONE (17:23)
[2019-02-20] MEDS ORDERED: HYDROmorphone TAB* 4 MG PO ONE (17:41)
[2019-02-20 17:42] LABS: ABS Eosinophils 0.1 10^3/ul (0-0.6); ABS Lymphocytes 1.2 10^3/ul (1.0-4.8); ABS Monocytes 0.3 10^3/ul (0-0.8); Nucleated Red Blood Cells % 0.2
[2019-02-20 17:52] LABS: Urine Appearance Cloudy; Urine Bacteria 1+ (Absent); Urine Bilirubin Negative (Negative); Urine Blood Negative (Negative); Urine Color Amber; Urine Glucose Negative (Negative); Urine Ketones Negative (Negative); Urine Nitrite Negative (Negative); Urine Protein 2+(100 mg/dL) (Negative); Urine Red Blood Cell 2+(6-10/hpf) (Absent); Urine Specific Gravity 1.024 (1.010-1.030); Urine Squamous Epithelial Cell Present (Absent); Urine Urobilinogen Negative (Negative); Urine White Blood Cell 3+(>20/hpf) (Absent)
[2019-02-20] MEDS ORDERED: NS 0.9% 1000 ML** 2,720 ML IV ONE (18:15)
[2019-02-20] MEDS ORDERED: Iodixanol* (CONTRAST) 320 MG/ML 100 ML SDV IV ONE (18:44)
[2019-02-20] MEDS ORDERED: Vancomycin(*) 1,000 MG in NS 0.9% 250 ML* 250 ML IVPB ONE (19:00)
[2019-02-20] MEDS ORDERED: Piperacillin/Tazobac ADVAN(*) 3.375 GM in NS 0.9% 100 ML* 100 ML IVPB ONE (19:00)
[2019-02-20] MEDS ORDERED: Insulin NPH(*) 1 UNITS UNIT SUBCUT ONE (19:02)
[2019-02-20] MEDS ORDERED: Insulin GLARGINE(*) 1 UNITS UNIT SUBCUT ONE (19:02)
[2019-02-20] MEDS ORDERED: Albuterol 2.5 MG/3 ML NEB.SOL* (0.083%) INH PRN (20:37)
[2019-02-20] MEDS ORDERED: NS 0.9% 1000 ML** 1,000 ML IV SCH (20:45)
[2019-02-20] MEDS ORDERED: Polyethylene Glycol 3350* 17 GM PACKET PO PRN (21:12)
[2019-02-20 21:23] LABS: Calcium 7.7 mg/dL (8.6-10.3); Potassium 3.1 mmol/L (3.5-5.0)
[2019-02-20 21:29] LABS: BUN/Creatinine Ratio 34.7 (8-20); EGFR African American 174.9 (>60); EGFR Non-African American 144.6 (>60)
[2019-02-20 21:45] LABS: C Reactive Protein 393.11 mg/L (<8.01)
[2019-02-20] MEDS ORDERED: Zosyn per Pharmacy* NOTE FOLLOW UP PRN (21:56)
[2019-02-20] MEDS ORDERED: Vancomycin per Pharmacy* NOTE FOLLOW UP SCH (22:00)
[2019-02-20] MEDS ORDERED: Cefepime 1 GM in Dextrose(*) 1 GM/50 ML BAG IV SCH (22:00)
[2019-02-20] MEDS: NS 0.9% 1000 ML** 1,000 ML IV SCH (23:42)
[2019-02-20] MEDS: KCL 20 MEQ/100 ML IVPREMIX* 20 MEQ/100 ML BAG IV SCH (23:43)
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
[2019-02-21] MEDS: ZOSYN 3.375 GM Q8H per EXTENDED INFUSION IVPB SCH ×6 (01:07→16:02)
[2019-02-21] MEDS: KCL 20 MEQ/100 ML IVPREMIX* 20 MEQ/100 ML BAG IV SCH (02:17)
[2019-02-21] MEDS: Acetaminophen TAB* 325 MG PO PRN ×4 (03:29→22:10)
[2019-02-21 06:39] LABS: Hematocrit 36 % (35-47); Hemoglobin 11.8 g/dL (12.0-16.0); Mean Corpuscular HGB Conc 33 g/dL (31-36); Mean Corpuscular Hemoglobin 32 pg (27-31); Mean Corpuscular Volume 96 fL (80-97); Red Blood Count 3.74 10^6 /uL (3.70-4.87); Red Cell Distribution Width 17 % (10.5-15); White Blood Count 6.7 10^3/uL (3.5-10.8)
[2019-02-21 06:46] LABS: BUN/Creatinine Ratio 37.8 (8-20); Calcium 7.7 mg/dL (8.6-10.3); EGFR African American 241.9 (>60); EGFR Non-African American 199.9 (>60); Potassium 3.6 mmol/L (3.5-5.0)
[2019-02-21 07:31] LABS: ABS Eosinophils 0.1 10^3/ul (0-0.6); ABS Lymphocytes 0.8 10^3/ul (1.0-4.8); ABS Monocytes 0.2 10^3/ul (0-0.8); ABS Neutrophils 5.5 10^3/ul (1.5-7.7); Eosinophil % 1.7 %; Lymphocyte % 11.3 %; Platelet Count 98 10^3/uL (150-450)
[2019-02-21] MEDS: NS 0.9% 1000 ML** 1,000 ML IV SCH ×2 (07:41→17:42)
[2019-02-21] MEDS: Rivaroxaban TAB(*) 20 MG TAB PO SCH (07:42)
[2019-02-21] MEDS: FLUoxetine CAP* 20 MG PO SCH (07:42)
[2019-02-21] MEDS: Cetirizine* 10 MG TAB PO SCH (07:42)
[2019-02-21] MEDS ORDERED: Topiramate TAB(*) 100 MG PO SCH (09:00)
[2019-02-21] MEDS ORDERED: lamoTRIgine TAB(*) 100 MG PO SCH (09:00)
[2019-02-21] MEDS ORDERED: FLOVENT 100 MCG PO SCH (09:00)
[2019-02-21] MEDS ORDERED: LORazepam TAB(*) 0.5 MG PO PRN (09:00)
--- NOTE | 2019-02-21 16:56 | PN ---
Subjective Date of Service: 02/21/19 Interval History: Patient seen this morning with the mother at bedside. She did have increase confusion this morning. Mild hypoxia required O2 supplementations. Her medications reviewed and her Seroquel should be 200 mg (ordered for 400 mg) and topamax 100 mg bid (ordered for 200 mg bid). I did decrease her dose accordingly and ABG on room did reveal hypoxia with PaO2 of 60 mmHG placed on O2 via NC. CO2 low not retaining. encourage her to cough and ordered pulmonary toileting therapy from RT Social History: Unchanged from Admission Past Medical History: Unchanged from Admission Objective Active Medications: Acetaminophen (Tylenol Tab*) 650 mg PO Q4H PRN PRN Reason: FEVER/PAIN Last Admin: 02/21/19 12:08 Dose: 650 mg Albuterol (Ventolin 2.5 Mg/3 Ml Neb.[place]*) 2.5 mg INH [id number] AWAKE PRN PRN Reason: sob/wheezing Cetirizine HCl (Zyrtec*) 10 mg PO DAILY [facility]; Protocol Last Admin: 02/21/19 07:42 Dose: 10 mg Fluoxetine HCl (Prozac Cap*) 20 mg PO DAILY [facility] Last Admin: 02/21/19 07:42 Dose: 20 mg Piperacillin Sod/Tazobactam (Sod 3.375 gm/ Sodium Chloride) 100 mls @ 25 mls/ hr IVPB Q8H [facility] Last Admin: 02/21/19 16:02 Dose: 25 mls/hr Sodium Chloride (Ns 0.9% 1000 Ml) 1,000 mls @ 125 mls/hr IV PER RATE [facility] Last Admin: 02/21/19 07:41 Dose: 125 mls/hr Lamotrigine (Lamictal Tab(*)) 200 mg PO QPM [facility] Lamotrigine (Lamictal Tab(*)) 200 mg PO QAM [facility] Lorazepam (Ativan Tab(*)) 0.5 mg PO Q8H PRN PRN Reason: SEIZURES Mometasone Furoate (Asmanex 220 Mcg Mdi *) 2 puff INH QPM [facility] Pharmacy Consult (Zosyn Per Pharmacy*) 1 note FOLLOW UP . PRN PRN Reason: PER PROTOCOL Polyethylene Glycol/Electrolytes (Miralax*) 17 gm PO MOWEFR PRN PRN Reason: CONSTIPATION Quetiapine Fumarate (Seroquel Tab*) 200 mg PO BEDTIME [facility] Rivaroxaban (Xarelto(*)) 20 mg PO DAILY [facility] Last Admin: 02/21/19 07:42 Dose: 20 mg Topiramate (Topamax(*)) 100 mg PO BID [facility] Vital Signs - 8 hr 02/21/19 15:30 Temperature 99.5 F Pulse Rate 102 Respiratory 18 Rate Blood Pressure 97/45 (mmHg) O2 Sat by Pulse 94 Oximetry Oxygen Devices in Use Now: Nasal Cannula Appearance: Awake, alert. follow simple command but having hard time staying awake. Eyes: No Scleral Icterus, - - EOMI Ears/Nose/Mouth/Throat: NL Teeth, Lips, Gums, Mucous Membranes Moist Neck: NL Appearance and Movements; NL JVP, Trachea Midline Respiratory: Symmetrical Chest Expansion and Respiratory Effort, - - coarse rhonhci with transmitted upper airway breathsounds bilateral Abdominal: NL Sounds; No Tenderness; No Distention Extremities: No Edema Skin: No Rash or Ulcers Neurological: Alert and Oriented x 3, - - parapelgic, and Right upper extremety weakness Result Diagrams: 02/21/19 06:21 02/21/19 06:21 Microbiology and Other Data: Microbiology 02/20/19 17:38 Legionella Urinary Antigen - Final Urine Negative Legionella Antigen Streptococcus pneumoniae Ag Screen - Final Negative S. pneumo Antigen 02/20/19 16:44 Aerobic Blood Culture - Preliminary Blood Venous Anaerobic Blood Culture - Preliminary 02/20/19 16:41 Aerobic Blood Culture - Preliminary Blood Venous Anaerobic Blood Culture - Preliminary Assess/Plan/Problems-Billing Assessment: 33 y/o female admitted for hypoxia, hypotension due to UTI and pneumonia - Patient Problems (1) Pneumonia Current Visit: Yes Status: Acute Code(s): J18.9 - PNEUMONIA, UNSPECIFIED ORGANISM SNOMED Code(s): 878044263 Comment: - Encourage pulmonary toileting - Continue Vanco and zosyn - Reordered sputum culture (2) Paraplegia Current Visit: No Status: Acute Code(s): G82.20 - PARAPLEGIA, UNSPECIFIED SNOMED Code(s): 34483686 Comment: - C6 level. Note presence of baclofen pump. - Requested her records from her neurology and pain clinic at [place] (3) Pseudoseizures Current Visit: No Status: Acute Priority: Medium Code(s): F44.5 - CONVERSION DISORDER WITH SEIZURES OR CONVULSIONS SNOMED Code(s): 725298452 Comment: - On topamax ad lamictal. dose adjusted to concur with her home regimen - Being managed by out-of-town neurologist ([place]) records requested (4) Suprapubic catheter Current Visit: No Status: Acute Priority: Medium Code(s): Z93.59 - OTHER CYSTOSTOMY STATUS SNOMED Code(s): 353749554 Comment: -Macias to gravity. (5) DVT prophylaxis Current Visit: No Status: Acute Priority: Low Code(s): QOA0505 - SNOMED Code(s): 429340633 Comment: - On xarelto
[2019-02-21] MEDS: lamoTRIgine TAB(*) 100 MG PO SCH (17:17)
[2019-02-21] MEDS: Mometasone 220 MCG MDI INH SCH (20:27)
[2019-02-21] MEDS ORDERED: QUEtiapine TAB* 100 MG PO SCH (21:00)
[2019-02-21] MEDS: QUEtiapine TAB* 100 MG PO SCH (22:10)
[2019-02-21] MEDS: Topiramate TAB(*) 100 MG PO SCH (22:10)
[2019-02-22] MEDS: ZOSYN 3.375 GM Q8H per EXTENDED INFUSION IVPB SCH ×4 (00:33→09:22)
[2019-02-22] MEDS ORDERED: Furosemide IV* 10 MG/ML 2 ML VIAL (20 MG) IV ONE ×3 (01:15→20:00)
--- NOTE | 2019-02-22 01:16 | PN ---
Progress Note - Progress Note Date of Service: 02/22/19 Note: Paged for increase in work of breathing, SOB and hypoxia. Lyndsay Lind evaluated earlier in the shift. IVFs d/c at beginning of shift On arrival, patient with increase wob, sob, diffuse coarse rhonchi and upper airway coarse breath sounds. Could be atelectasis with some pulmonary edema in addition to her GNR PNA. Will get CXR, Lasix 20 mg IV and transfer to ICU for vapotherm. May need BiPAP About 15 min on vapotherm, diuresing but still increase work of breathing. Somewhat lethargic but awakes to voice easily. Designated her mother as her HCP Will switch to BiPAP and obtain ABG. CXR concerning for ARDS. Patient did respond to lasix put out more than 1200L. Clinically improving on BiPAP Recommend recreational sports director consult in the AM
[2019-02-22 02:14] LABS: Hematocrit 35 % (35-47); Hemoglobin 11.6 g/dL (12.0-16.0); Mean Corpuscular HGB Conc 33 g/dL (31-36); Mean Corpuscular Hemoglobin 31 pg (27-31); Mean Corpuscular Volume 94 fL (80-97); Platelet Count 100 10^3/uL (150-450); Red Blood Count 3.74 10^6 /uL (3.70-4.87); Red Cell Distribution Width 17 % (10.5-15); White Blood Count 6.7 10^3/uL (3.5-10.8)
[2019-02-22 02:23] LABS: ABS Eosinophils 0.2 10^3/ul (0-0.6); ABS Monocytes 0.2 10^3/ul (0-0.8); ABS Neutrophils 5.2 10^3/ul (1.5-7.7)
[2019-02-22 02:34] LABS: BUN/Creatinine Ratio 26.3 (8-20); Calcium 7.7 mg/dL (8.6-10.3); EGFR African American 234.6 (>60); EGFR Non-African American 193.9 (>60); Magnesium 1.7 mg/dL (1.9-2.7); Potassium 3.2 mmol/L (3.5-5.0)
[2019-02-22 02:46] LABS: Eosinophil % 3.5 %; Lymphocyte % 14.7 %
[2019-02-22] MEDS: lamoTRIgine TAB(*) 100 MG PO SCH ×2 (08:51→18:26)
[2019-02-22] MEDS: FLUoxetine CAP* 20 MG PO SCH (08:51)
[2019-02-22] MEDS: Cetirizine* 10 MG TAB PO SCH (08:51)
[2019-02-22] MEDS: Rivaroxaban TAB(*) 20 MG TAB PO SCH (09:22)
[2019-02-22] MEDS: Topiramate TAB(*) 100 MG PO SCH ×2 (09:22→21:19)
[2019-02-22] MEDS ORDERED: Furosemide IV* 10 MG/ML 2 ML VIAL (20 MG) ONE (14:52)
[2019-02-22] MEDS ORDERED: cefTRIAXone(*) 1 GM in NS 0.9% 50 ML* 50 ML IVPB SCH (15:00)
[2019-02-22 15:18] LABS: Hematocrit 38 % (35-47); Hemoglobin 12.7 g/dL (12.0-16.0); Mean Corpuscular HGB Conc 34 g/dL (31-36); Mean Corpuscular Hemoglobin 32 pg (27-31); Mean Corpuscular Volume 94 fL (80-97); Mean Platelet Volume 9.6 fL (7.4-10.4); Platelet Count 98 10^3/uL (150-450); Red Blood Count 4.03 10^6 /uL (3.70-4.87); Red Cell Distribution Width 17 % (10.5-15); White Blood Count 7.4 10^3/uL (3.5-10.8)
[2019-02-22 15:41] LABS: BUN/Creatinine Ratio 29.4 (8-20); Calcium 8.4 mg/dL (8.6-10.3); EGFR African American 266.7 (>60); EGFR Non-African American 220.4 (>60); Magnesium 1.8 mg/dL (1.9-2.7); Potassium 3.1 mmol/L (3.5-5.0)
[2019-02-22] MEDS ORDERED: Metoprolol Tartrate IV* 1 MG/ML 5 ML VIAL IV ONE (15:45)
--- NOTE | 2019-02-22 15:52 | PN ---
Subjective Date of Service: 02/22/19 Interval History: patient developed Acute respiratory failure last night, required transfer to ICU and placement on Bipap. Seen in ICU still hypoxic on FiO2 60% on bipap, tachycardia. BC came back positive GNR (E-coli) ID consulted. Social History: Unchanged from Admission Past Medical History: Unchanged from Admission Objective Active Medications: Acetaminophen (Tylenol Tab*) 650 mg PO Q4H PRN PRN Reason: FEVER/PAIN Last Admin: 02/21/19 22:10 Dose: 650 mg Albuterol (Ventolin 2.5 Mg/3 Ml Neb.[place]*) 2.5 mg INH [id number] AWAKE PRN PRN Reason: sob/wheezing Last Admin: 02/22/19 14:20 Dose: 2.5 mg Cetirizine HCl (Zyrtec*) 10 mg PO DAILY [facility]; Protocol Last Admin: 02/22/19 08:51 Dose: 10 mg Fluoxetine HCl (Prozac Cap*) 20 mg PO DAILY [facility] Last Admin: 02/22/19 08:51 Dose: 20 mg Ceftriaxone Sodium 1 gm/ (Sodium Chloride) 50 mls @ 200 mls/hr IVPB Q24H [facility] Last Admin: 02/22/19 15:35 Dose: 200 mls/hr Lamotrigine (Lamictal Tab(*)) 200 mg PO QPM [facility] Last Admin: 02/21/19 17:17 Dose: 200 mg Lamotrigine (Lamictal Tab(*)) 200 mg PO QAM [facility] Last Admin: 02/22/19 08:51 Dose: 200 mg Lorazepam (Ativan Tab(*)) 0.5 mg PO Q8H PRN PRN Reason: SEIZURES Metoprolol Tartrate (Lopressor Iv*) 5 mg IV ONCE ONE Stop: 02/22/19 15:46 Mometasone Furoate (Asmanex 220 Mcg Mdi *) 2 puff INH QPM [facility] Last Admin: 02/21/19 20:27 Dose: 2 puff Polyethylene Glycol/Electrolytes (Miralax*) 17 gm PO MOWEFR PRN PRN Reason: CONSTIPATION Quetiapine Fumarate (Seroquel Tab*) 200 mg PO BEDTIME [facility] Last Admin: 02/21/19 22:10 Dose: 200 mg Rivaroxaban (Xarelto(*)) 20 mg PO DAILY [facility] Last Admin: 02/22/19 09:22 Dose: 20 mg Topiramate (Topamax(*)) 100 mg PO BID [facility] Last Admin: 02/22/19 09:22 Dose: 100 mg Vital Signs - 8 hr 02/22/19 02/22/19 02/22/19 08:00 08:01 08:15 Temperature Pulse Rate 87 87 86 Respiratory 17 15 16 Rate Blood Pressure 109/62 100/64 (mmHg) O2 Sat by Pulse 94 94 95 Oximetry 02/22/19 02/22/19 02/22/19 08:30 08:45 09:00 Temperature Pulse Rate 84 96 89 Respiratory 15 22 18 Rate Blood Pressure 107/64 107/57 112/73 (mmHg) O2 Sat by Pulse 96 94 95 Oximetry 02/22/19 02/22/19 02/22/19 09:15 09:30 09:45 Temperature Pulse Rate 98 92 95 Respiratory 23 19 19 Rate Blood Pressure 105/70 104/72 106/69 (mmHg) O2 Sat by Pulse 95 94 95 Oximetry 02/22/19 02/22/19 02/22/19 10:00 10:16 10:31 Temperature Pulse Rate 96 98 103 Respiratory 21 25 22 Rate Blood Pressure 109/70 141/85 108/64 (mmHg) O2 Sat by Pulse 94 93 94 Oximetry 02/22/19 02/22/19 02/22/19 10:45 11:00 11:15 Temperature Pulse Rate 89 86 84 Respiratory 15 14 12 Rate Blood Pressure 102/63 104/68 102/65 (mmHg) O2 Sat by Pulse 95 95 96 Oximetry 02/22/19 02/22/19 02/22/19 11:30 11:32 11:45 Temperature 97.2 F Pulse Rate 85 86 Respiratory 14 14 Rate Blood Pressure 99/60 106/59 (mmHg) O2 Sat by Pulse 93 93 Oximetry 02/22/19 02/22/19 02/22/19 12:00 12:15 12:30 Temperature Pulse Rate 84 101 91 Respiratory 14 22 18 Rate Blood Pressure 105/65 116/75 106/71 (mmHg) O2 Sat by Pulse 94 93 94 Oximetry 02/22/19 02/22/19 02/22/19 13:00 13:30 13:44 Temperature Pulse Rate 88 85 96 Respiratory 15 15 21 Rate Blood Pressure 106/69 111/66 124/74 (mmHg) O2 Sat by Pulse 96 96 89 Oximetry 02/22/19 02/22/19 02/22/19 13:51 14:00 14:01 Temperature 96.5 F Pulse Rate 95 93 Respiratory 20 18 Rate Blood Pressure 94/69 (mmHg) O2 Sat by Pulse 92 92 Oximetry 02/22/19 02/22/19 02/22/19 14:20 14:30 15:00 Temperature Pulse Rate 110 123 133 Respiratory 22 24 21 Rate Blood Pressure 139/83 140/83 (mmHg) O2 Sat by Pulse 95 91 92 Oximetry Oxygen Devices in Use Now: BiPAP Appearance: awake, responding well, on Bipap resting well Eyes: No Scleral Icterus, - - EOMI Ears/Nose/Mouth/Throat: - - Bipap face mask on Neck: NL Appearance and Movements; NL JVP, Trachea Midline Respiratory: - - Limited to anterior examination. Expiratory wheezing Cardiovascular: - - Tacchcyardic Abdominal: NL Sounds; No Tenderness; No Distention Extremities: - - + Edema Result Diagrams: 02/22/19 15:08 02/22/19 15:08 Microbiology and Other Data: Microbiology 02/20/19 17:38 Legionella Urinary Antigen - Final Urine Negative Legionella Antigen Streptococcus pneumoniae Ag Screen - Final Negative S. pneumo Antigen 02/20/19 16:44 Aerobic Blood Culture - Preliminary Blood Venous Anaerobic Blood Culture - Preliminary 02/20/19 16:41 Aerobic Blood Culture - Preliminary Blood Venous Anaerobic Blood Culture - Preliminary Assess/Plan/Problems-Billing Assessment: 33 y/o female admitted for hypoxia, hypotension due to UTI and pneumonia develloped ARF on 02/21/19 transferred to ICU for BiPAP - Patient Problems (1) Acute respiratory failure Current Visit: Yes Status: Acute Code(s): J96.00 - ACUTE RESPIRATORY FAILURE , UNSP W HYPOXIA OR HYPERCAPNIA SNOMED Code(s): 87483872 Comment: - Secondary to ARDS versus Pulmonary edema - Clinically it fits pulmonary edema - Responding with lasix. Off IVF - On Bipap and requiring 60% Fio2 - Will continue with lasix if BP allows, Lopressor to alleviate her sinus tacchycardia. PRN dilaudid 0.5 mg as she does have allergy to morphine (2) Gram-negative bacteremia Current Visit: Yes Status: Acute Code(s): R78.81 - BACTEREMIA SNOMED Code( s): 761541891528 Comment: - E-coli positive on 02/22/19 - S/p one day vanco and Zosyn transitioned to Rocephin - ID consulted - Ordered US RUQ and renal US - Will check Echo as her CXR reveals ARDS versus Pulmonary edema. - Lasix 20 mg once last night and will repeat today (3) Pneumonia Current Visit: Yes Status: Acute Code(s): J18.9 - PNEUMONIA, UNSPECIFIED ORGANISM SNOMED Code(s): 142927737 Comment: - Encourage pulmonary toileting - s/p vanco and zosyn. Switched to Rocephin as per ID given her BC sensitivity - Re-ordered sputum culture (4) Paraplegia Current Visit: No Status: Acute Code(s): G82.20 - PARAPLEGIA, UNSPECIFIED SNOMED Code(s): 74327158 Comment: - C6 level. Note presence of baclofen pump. - Requested her records from her neurology and pain clinic at [place] (5) Pseudoseizures Current Visit: No Status: Acute Priority: Medium Code(s): F44.5 - CONVERSION DISORDER WITH SEIZURES OR CONVULSIONS SNOMED Code(s): 686662610 Comment: - On topamax ad lamictal. dose adjusted to concur with her home regimen - Being managed by out-of-town neurologist ([place]) records requested (6) Suprapubic catheter Current Visit: No Status: Acute Priority: Medium Code(s): Z93.59 - OTHER CYSTOSTOMY STATUS SNOMED Code(s): 148849274 Comment: -Macias to gravity. (7) DVT prophylaxis Current Visit: No Status: Acute Priority: Low Code(s): XIH7966 - SNOMED Code(s): 301251867 Comment: - On xarelto
[2019-02-22] MEDS ORDERED: Magnesium Sulfate 2 GM IV* 2 GM/50 ML BAG IVPB ONE (15:58)
[2019-02-22 15:59] LABS: ABS Eosinophils 0.1 10^3/ul (0-0.6); ABS Lymphocytes 1.3 10^3/ul (1.0-4.8); ABS Monocytes 0.3 10^3/ul (0-0.8); ABS Neutrophils 5.7 10^3/ul (1.5-7.7); Lymphocyte % 17.6 %
[2019-02-22] MEDS ORDERED: Ondansetron INJ* 2 MG/ML VIAL IV PRN (16:08)
[2019-02-22] MEDS ORDERED: Ondansetron INJ* 2 MG/ML VIAL ONE (16:13)
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
[2019-02-22] MEDS ORDERED: Potassium Phosphate IV* 10 MMOLE in NS 0.9% 250 ML* 250 ML IVPB ONE (16:30)
[2019-02-22] MEDS ORDERED: HYDROmorphone INJ* 0.5 MG/0.5 ML SYRINGE IV SLOW PU ONE (16:32)
[2019-02-22] MEDS: KCL 20 MEQ/100 ML IVPREMIX* 20 MEQ/100 ML BAG IV SCH ×3 (16:40→21:19)
[2019-02-22] MEDS ORDERED: Nitro 2% OINT* (Nitroglycerin) 1 INCH/PAK PAK TOPICAL ONE (17:42)
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
[2019-02-22] MEDS: Mometasone 220 MCG MDI INH SCH (20:13)
[2019-02-22] MEDS: QUEtiapine TAB* 100 MG PO SCH (21:19)
[2019-02-22] MEDS ORDERED: NS 0.9% 500 ML* 500 ML IV ONE (23:27)
[2019-02-22] MEDS ORDERED: Piperacillin/Tazobac ADVAN(*) 3.375 GM in NS 0.9% 100 ML* 100 ML IVPB ONE (23:30)
[2019-02-22] MEDS ORDERED: Zosyn per Pharmacy* NOTE FOLLOW UP SCH (23:45)
[2019-02-23] MEDS ORDERED: TRIMETH IVPB SCH ×2
[2019-02-23] MEDS ORDERED: Nitro Patch/OINT Remove TOPICAL ONE
[2019-02-23] MEDS ORDERED: D5W IVPB SCH ×2
[2019-02-23] MEDS ORDERED: SULFAMETHOXAZOLE IVPB SCH ×2
--- NOTE | 2019-02-23 00:12 | PN ---
Hospitalist Progress Note Date of Service: 02/23/19 Called for worsening hypotension and poor mental status. 70s over 40s automatic. 76/44 on manual recheck. Pt on Bipap, will squeeze hands on command, track with eyes and shake head to communicate but somewhat lethargic. ABG checked 7.28 pCO2 40 PO2 112. Bicarv 19.1. Asked to remove the nitro patch given for tachycardia earlier. Her UCx has now resulted both PSDA and stenotrophomonas malitiphilia in addition to the Ecoli (bacteremia also). Given hypotension will broaden to cover the Urine pathogens: bactrim IV 460mg q8 (for steno) and switch cftx back to zosyn (PSDA). Both should cover the Ecoli. 500cc NS bolus with improvement in pressures to 100/47. Unable to get additional pIV ( reported plan was for PICC tomorrow).
[2019-02-23] MEDS ORDERED: ZOSYN 3.375 GM Q8H per EXTENDED INFUSION IVPB SCH ×2 (04:00)
[2019-02-23 06:33] LABS: Hematocrit 34 % (35-47); Hemoglobin 11.3 g/dL (12.0-16.0); Mean Corpuscular HGB Conc 33 g/dL (31-36); Mean Corpuscular Hemoglobin 31 pg (27-31); Mean Corpuscular Volume 94 fL (80-97); Platelet Count 120 10^3/uL (150-450); Red Blood Count 3.61 10^6 /uL (3.70-4.87); Red Cell Distribution Width 17 % (10.5-15); White Blood Count 7.7 10^3/uL (3.5-10.8)
[2019-02-23 06:51] LABS: BUN/Creatinine Ratio 26.5 (8-20); C Reactive Protein 336.2 mg/L (<8.01); Calcium 7.8 mg/dL (8.6-10.3); EGFR African American 266.7 (>60); EGFR Non-African American 220.4 (>60); Magnesium 2.1 mg/dL (1.9-2.7); Phosphorus 2.5 mg/dL (2.5-5.0); Potassium 3.6 mmol/L (3.5-5.0)
[2019-02-23 07:18] LABS: ABS Lymphocytes 0.7 10^3/ul (1.0-4.8); ABS Monocytes 0.2 10^3/ul (0-0.8); ABS Neutrophils 6.7 10^3/ul (1.5-7.7); Eosinophil % 0.3 %; Lymphocyte % 9.5 %; Nucleated Red Blood Cells % 0.1
[2019-02-23] MEDS ORDERED: HYDROmorphone INJ* 0.5 MG/0.5 ML SYRINGE IV SLOW PU ONE (08:49)
[2019-02-23] MEDS: Rivaroxaban TAB(*) 20 MG TAB PO SCH (09:37)
[2019-02-23] MEDS: FLUoxetine CAP* 20 MG PO SCH (09:37)
[2019-02-23] MEDS: Cetirizine* 10 MG TAB PO SCH (09:38)
[2019-02-23] MEDS: lamoTRIgine TAB(*) 100 MG PO SCH ×2 (09:38→19:06)
[2019-02-23] MEDS: Meropenem 1 GM PREMIX(*) 1 GM/50 ML BAG IV SCH ×2 (09:38→17:31)
[2019-02-23] MEDS: Topiramate TAB(*) 100 MG PO SCH ×2 (09:38→20:27)
[2019-02-23] MEDS ORDERED: Vancomycin(*) 1,500 MG in NS 0.9% 250 ML* 250 ML IVPB ONE (10:00)
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
[2019-02-23] MEDS ORDERED: Vancomycin per Pharmacy* NOTE FOLLOW UP PRN (10:18)
[2019-02-23] MEDS ORDERED: HYDROmorphone INJ* 0.5 MG/0.5 ML SYRINGE IV SLOW PU PRN (13:47)
[2019-02-23] MEDS ORDERED: D5NS 0.9% 1000 ML BAG* 1,000 ML IV SCH ×2 (15:00→23:09)
--- NOTE | 2019-02-23 15:01 | PN ---
Subjective Date of Service: 02/23/19 Interval History: Patient seen in ICU. Events from overnight noted and appreciate documentations. Apparently patient developed hypotension required IVF replacement and Abx broaden to Zosyn, Bactrim. Case discussed with intensivit and input appreciated. Abx changed to merropen and vanco. Patient was on Vapotherm, ABG done and revealed early respiratory acidosis. She was placed on BIpap and being titrated as per ABG. Social History: Unchanged from Admission Past Medical History: Unchanged from Admission Objective Active Medications: Acetaminophen (Tylenol Tab*) 650 mg PO Q4H PRN PRN Reason: FEVER/PAIN Last Admin: 02/21/19 22:10 Dose: 650 mg Albuterol (Ventolin 2.5 Mg/3 Ml Neb.[place]*) 2.5 mg INH [id number] AWAKE PRN PRN Reason: sob/wheezing Last Admin: 02/22/19 14:20 Dose: 2.5 mg Cetirizine HCl (Zyrtec*) 10 mg PO DAILY [facility]; Protocol Last Admin: 02/23/19 09:38 Dose: 10 mg Fluoxetine HCl (Prozac Cap*) 20 mg PO DAILY [facility] Last Admin: 02/23/19 09:37 Dose: 20 mg Hydromorphone HCl (Dilaudid Inj*) 0.5 mg IV SLOW PU Q6H PRN PRN Reason: PAIN Meropenem (Merrem 1 Gm Premix(*)) 1 gm in 50 mls @ 100 mls/hr IV Q8H [facility]; Protocol Last Admin: 02/23/19 09:38 Dose: 100 mls/hr Vancomycin HCl 1,000 mg/ (Sodium Chloride) 250 mls @ 166.667 mls/hr IVPB Q8H [facility]; Protocol Lamotrigine (Lamictal Tab(*)) 200 mg PO QPM [facility] Last Admin: 02/22/19 18:26 Dose: 200 mg Lamotrigine (Lamictal Tab(*)) 200 mg PO QAM [facility] Last Admin: 02/23/19 09:38 Dose: 200 mg Lorazepam (Ativan Tab(*)) 0.5 mg PO Q8H PRN PRN Reason: SEIZURES Mometasone Furoate (Asmanex 220 Mcg Mdi *) 2 puff INH QPM [facility] Last Admin: 02/22/19 20:13 Dose: Not Given Ondansetron HCl (Zofran Inj*) 4 mg IV Q6H PRN PRN Reason: NAUSEA Last Admin: 02/22/19 16:18 Dose: 4 mg Pharmacy Consult (Vancomycin Per Pharmacy*) 1 note FOLLOW UP . PRN PRN Reason: PER PROTOCOL Pharmacy Profile Note (Vancomycin Trough Check) 1 note FOLLOW UP ONCE ONE Stop: 02/25/19 09:31 Polyethylene Glycol/Electrolytes (Miralax*) 17 gm PO MOWEFR PRN PRN Reason: CONSTIPATION Quetiapine Fumarate (Seroquel Tab*) 200 mg PO BEDTIME [facility] Last Admin: 02/22/19 21:19 Dose: 200 mg Rivaroxaban (Xarelto(*)) 20 mg PO DAILY [facility] Last Admin: 02/23/19 09:37 Dose: 20 mg Topiramate (Topamax(*)) 100 mg PO BID [facility] Last Admin: 02/23/19 09:38 Dose: 100 mg Vital Signs - 8 hr 02/23/19 02/23/19 02/23/19 06:52 07:00 07:15 Temperature Pulse Rate 100 97 98 Respiratory 20 19 19 Rate Blood Pressure 94/57 96/50 98/53 (mmHg) O2 Sat by Pulse 96 96 97 Oximetry 02/23/19 02/23/19 02/23/19 08:00 08:09 08:15 Temperature 97.4 F Pulse Rate 103 98 96 Respiratory 18 19 17 Rate Blood Pressure 93/55 114/70 (mmHg) O2 Sat by Pulse 95 96 95 Oximetry 02/23/19 02/23/19 02/23/19 08:30 08:45 09:00 Temperature Pulse Rate 102 103 105 Respiratory 23 22 19 Rate Blood Pressure 95/53 83/48 84/59 (mmHg) O2 Sat by Pulse 94 97 94 Oximetry 02/23/19 02/23/19 02/23/19 09:17 09:19 09:30 Temperature Pulse Rate 104 103 108 Respiratory 23 22 22 Rate Blood Pressure 87/61 82/55 (mmHg) O2 Sat by Pulse 99 97 94 Oximetry 02/23/19 02/23/19 02/23/19 09:37 09:45 10:00 Temperature Pulse Rate 101 89 Respiratory 16 17 12 Rate Blood Pressure 109/49 87/47 (mmHg) O2 Sat by Pulse 95 96 Oximetry 02/23/19 02/23/19 02/23/19 10:15 10:30 10:37 Temperature Pulse Rate 89 88 Respiratory 11 10 12 Rate Blood Pressure 82/38 91/42 (mmHg) O2 Sat by Pulse 95 95 Oximetry 02/23/19 02/23/19 02/23/19 10:45 11:00 11:15 Temperature Pulse Rate 94 89 100 Respiratory 18 11 17 Rate Blood Pressure 82/46 77/41 88/48 (mmHg) O2 Sat by Pulse 94 95 96 Oximetry 02/23/19 02/23/19 02/23/19 11:30 11:45 12:00 Temperature 97.2 F Pulse Rate 90 91 93 Respiratory 11 15 12 Rate Blood Pressure 86/41 90/42 89/44 (mmHg) O2 Sat by Pulse 95 94 94 Oximetry 02/23/19 02/23/19 02/23/19 12:15 12:30 12:45 Temperature Pulse Rate 94 96 94 Respiratory 12 15 10 Rate Blood Pressure 91/42 88/46 96/43 (mmHg) O2 Sat by Pulse 94 96 95 Oximetry 02/23/19 02/23/19 13:00 13:01 Temperature Pulse Rate 100 99 Respiratory 13 13 Rate Blood Pressure 100/43 (mmHg) O2 Sat by Pulse 96 96 Oximetry Oxygen Devices in Use Now: Mechanical Ventilator Appearance: depressed, emotionally distressed. dry oral mucosa Eyes: No Scleral Icterus Ears/Nose/Mouth/Throat: NL Teeth, Lips, Gums, - - dry oral mucosa Neck: NL Appearance and Movements; NL JVP Respiratory: - - limited to anterior. clear I did not appreciate rales. or wheesing Abdominal: NL Sounds; No Tenderness; No Distention, - - suprapubic catheter Extremities: - - flaccid paralysis, edema non pitting Neurological: - - confused to place and time. Result Diagrams: 02/23/19 06:14 02/23/19 06:14 Microbiology and Other Data: Microbiology 02/20/19 17:38 Legionella Urinary Antigen - Final Urine Negative Legionella Antigen Streptococcus pneumoniae Ag Screen - Final Negative S. pneumo Antigen 02/20/19 16:44 Aerobic Blood Culture - Preliminary Blood Venous Anaerobic Blood Culture - Preliminary 02/20/19 16:41 Aerobic Blood Culture - Preliminary Blood Venous Anaerobic Blood Culture - Preliminary Assess/Plan/Problems-Billing Assessment: 33 y/o female admitted for hypoxia, hypotension due to UTI and pneumonia develloped ARF on 02/21/19 transferred to ICU for BiPAP - Patient Problems (1) Acute respiratory failure Current Visit: Yes Status: Acute Code(s): J96.00 - ACUTE RESPIRATORY FAILURE , UNSP W HYPOXIA OR HYPERCAPNIA SNOMED Code(s): 02083408 Comment: - Repeat CXR today did not shows improvement, Hence I don't think her respiratory failure due to pulmonary edema - She dropped her BP post lasix. Will resume gentle IVF - Dropped her BP yesterday night and abx changed to merropen and vanco for now - ICU consult appreciated. - Will continue Bipap titrated as per ABG - Patient stating "I want to ..." " I am done ..."! I had meeting with the mother and two brothers. I explained at this time we have not given adequate time and effort for us to make determination if she is terminal versus reversible. I agreed with the DNR/DNI at this time but I did not support comfort care measure. - Mother and brothers appreciate all effort and they are in support to continue current treatment but they do not want her to suffer and prolong her treatment if she does not show evidence of improvement. - I will continue to keep them updated and will endorse to the incoming hospitalist of the plan (2) Pneumonia Current Visit: Yes Status: Acute Code(s): J18.9 - PNEUMONIA, UNSPECIFIED ORGANISM SNOMED Code(s): 001328859 Comment: - Encourage pulmonary toileting - s/p vanco and zosyn. Switched to Rocephin as per ID given her BC sensitivity - Repeat CXR today did not shows improvement, Hence I don't think her respiratory failure due to pulmonary edema. - She dropped her BP post lasix. Will resume gentle IVF - ICU consulted and placed her back on merropenem and Vanco (3) Gram-negative bacteremia Current Visit: Yes Status: Acute Code(s): R78.81 - BACTEREMIA SNOMED Code( s): 563394976541 Comment: - E-coli positive on 02/22/19 - S/p one day vanco and Zosyn transitioned to Rocephin by ID 02/22/19. She declined on 02/22/19 evening by dropping BP. Most likely due to Lasix - Ordered US RUQ and renal US negative. Once stable we may consider obtain CT abdomen - Echo normal EF. Will D/c Lasix (4) Paraplegia Current Visit: No Status: Acute Code(s): G82.20 - PARAPLEGIA, UNSPECIFIED SNOMED Code(s): 75644780 Comment: - C6 level. Note presence of baclofen pump. - Requested her records from her neurology and pain clinic at [facility] (5) Pseudoseizures Current Visit: No Status: Acute Priority: Medium Code(s): F44.5 - CONVERSION DISORDER WITH SEIZURES OR CONVULSIONS SNOMED Code(s): 932569776 Comment: - On topamax ad lamictal. dose adjusted to concur with her home regimen - Being managed by out-of-town neurologist ([facility]) records requested (6) Suprapubic catheter Current Visit: No Status: Acute Priority: Medium Code(s): Z93.59 - OTHER CYSTOSTOMY STATUS SNOMED Code(s): 069691467 Comment: - Macias to gravity. - Will need to have catheter exchanged. - Call placed to Dr. Bey (7) DVT prophylaxis Current Visit: No Status: Acute Priority: Low Code(s): BBZ2364 - SNOMED Code(s): 575549650 Comment: - On xarelto
[2019-02-23] MEDS ORDERED: Vancomycin(*) 1,000 MG in NS 0.9% 250 ML* 250 ML IVPB SCH (18:00)
--- NOTE | 2019-02-23 19:43 | PN ---
Hospitalist Progress Note Date of Service: 02/23/19 After reviewing the US of bladder, I did notice that there was no imaging of her kidney. I ordered CT scan of abdomen and pelvis and it did shows right proximal 5 mm stones. Given her Urine and blood culture of E-Coli, I did consult with urology Dr. Christian. Discussed the case of family the possibility of the stone causing her sepsis. She will require nehprostomy tube placement versus intrauretral stent placement. AT this time I will hold the Xarelto. ( last dose 9 am today 02/23/19)! ORdreed repeat CT abdomen and pelvis in am to look for developing hydronephrosis. If nephrostomy tube is amneable to be placed in am is still pending the repeat CT. I left a message with Dr. Cortes from radiology to relay the consult for Dr. Weathers.
--- NOTE | 2019-02-23 20:21 | PN ---
Hospitalist Progress Note Urology Dr. Christian called and requested changing CT abd/pelvis noncontrast in AM to a CT Urogram to better determine whether or not the ureteral stone is obstructing. Orders changed.
[2019-02-23] MEDS: QUEtiapine TAB* 100 MG PO SCH (20:27)
[2019-02-23] MEDS: Mometasone 220 MCG MDI INH SCH (20:30)
[2019-02-23] MEDS: D5W IVPB SCH (20:41)
[2019-02-23] MEDS: SULFAMETHOXAZOLE IVPB SCH (20:41)
[2019-02-23] MEDS: TRIMETH IVPB SCH (20:41)
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
[2019-02-24] MEDS: Meropenem 1 GM PREMIX(*) 1 GM/50 ML BAG IV SCH ×2 (00:59→11:32)
[2019-02-24] MEDS ORDERED: NS 0.9% 500 ML* 500 ML IV ONE (02:05)
[2019-02-24] MEDS ORDERED: D5NS 0.9% 1000 ML BAG* 1,000 ML IV SCH (03:21)
[2019-02-24] MEDS: Phenylephrine 10 MG/ML VIAL* 50 MG in NS 0.9% 250 ML* 245 ML IV SCH ×2 (03:34→11:31)
[2019-02-24] MEDS: TRIMETH IVPB SCH ×2 (04:39→13:15)
[2019-02-24] MEDS: D5W IVPB SCH ×2 (04:39→13:15)
[2019-02-24] MEDS: SULFAMETHOXAZOLE IVPB SCH ×2 (04:39→13:15)
[2019-02-24 05:20] LABS: Hematocrit 34 % (35-47); Hemoglobin 11.2 g/dL (12.0-16.0); Mean Corpuscular HGB Conc 33 g/dL (31-36); Mean Corpuscular Hemoglobin 31 pg (27-31); Mean Corpuscular Volume 96 fL (80-97); Mean Platelet Volume 8.8 fL (7.4-10.4); Platelet Count 118 10^3/uL (150-450); Red Cell Distribution Width 18 % (10.5-15); White Blood Count 9.9 10^3/uL (3.5-10.8)
[2019-02-24 05:34] LABS: Albumin 2.8 g/dL (3.2-5.2); BUN/Creatinine Ratio 18.1 (8-20); Calcium 7.4 mg/dL (8.6-10.3); EGFR African American 112.2 (>60); EGFR Non-African American 92.7 (>60); Globulin 2.8 g/dL (2-4); Indirect Bilirubin 0.1 mg/dL (0.3-1.0); Phosphorus 3.4 mg/dL (2.5-5.0); Potassium 3.1 mmol/L (3.5-5.0); Total Bilirubin 0.2 mg/dL (0.2-1.0); Total Protein 5.6 g/dL (6.4-8.9)
[2019-02-24 06:00] LABS: ABS Eosinophils 0.1 10^3/ul (0-0.6); ABS Neutrophils 8.5 10^3/ul (1.5-7.7); ABS Neutrophils 8.7 10^3/ul (1.5-7.7)
[2019-02-24] MEDS: KCL 20 MEQ/100 ML IVPREMIX* 20 MEQ/100 ML BAG IV SCH ×3 (07:02→11:30)
--- NOTE | 2019-02-24 10:05 | PN ---
Progress Note - Progress Note Date of Service: 02/24/19 Note: Pt is on BIPAP and neosynephrine gtt. Very decreased air entry to lungs b/l on exam and diminished breath sounds. Pt withdraws to pain only, otherwise appears obtunded, pupils at 2 mm b/l minimally reactive. Spoke with Mother(HCP) Mai with assistance of pt's RN Jen for approx 45 min this AM. Pt would have to be intubated to undergo nephostomy and to be safely moved to CT for further diagnostics. Pt is DNR/DNI. Mai wants pt to be DNR and is inclined to do comfort care, but one of pt's two brothers wish for pt to be intubated. Mai is the HCP and ultimately it's her decision and not pt's brothers', although she wishes her family to be supportive of her decision. We're awaiting for pt's brothers to get here to discuss potential reversal of DNR/DNI and intubation vs comfort care. Mai is aware that if pt's heart were to stop she is now DNR/DNI and wants to keep pt in current code status as already decided. approx 45 min spent with pt and HCP
[2019-02-24] MEDS: Topiramate TAB(*) 100 MG PO SCH (11:24)
[2019-02-24] MEDS: Cetirizine* 10 MG TAB PO SCH (11:24)
[2019-02-24] MEDS: FLUoxetine CAP* 20 MG PO SCH (11:24)
[2019-02-24] MEDS: lamoTRIgine TAB(*) 100 MG PO SCH (11:24)
[2019-02-24] MEDS ORDERED: HYDROmorphone INJ* 0.5 MG/0.5 ML SYRINGE IV SLOW PU PRN (13:14)
[2019-02-24] MEDS ORDERED: Atropine 1% (ORAL/SL)* 15 ML BTL SL PRN (13:15)
[2019-02-24] MEDS ORDERED: HYDROmorphone INJ* 0.5 MG/0.5 ML SYRINGE ONE (13:25)
[2019-02-24 13:50] VITALS: BP 100/54
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
[2019-02-25] MEDS ORDERED: Vancomycin Trough Check NOTE FOLLOW UP ONE (09:30)
== END 2019-02-24 14:00 | disposition expired | DRG 720 ==
LOC: ED 15:42 → MEDTELE 20:37 → ICU 02-22 02:33
PROVIDERS: ADMIT Pediatrics; ATTEND Internal Medicine
PROC: 5A09357 Assistance with Respiratory Ventilation, Less than 24 Consecutive Hours, Continuous Positive Airway Pressure (ICD-10-PCS; principal; 2019-02-22)
DX: A41.51 Sepsis due to Escherichia coli [E. coli] (principal); J18.9 Pneumonia, unspecified organism; J96.01 Acute respiratory failure with hypoxia; G82.20 Paraplegia, unspecified; J90 Pleural effusion, not elsewhere classified; N20.1 Calculus of ureter; E87.2 Acidosis; R65.20 Severe sepsis without septic shock; F41.9 Anxiety disorder, unspecified; F32.9 Major depressive disorder, single episode, unspecified; G90.4 Autonomic dysreflexia; F17.210 Nicotine dependence, cigarettes, uncomplicated; R59.0 Localized enlarged lymph nodes; E87.6 Hypokalemia; G40.909 Epilepsy, unspecified, not intractable, without status epilepticus; D69.6 Thrombocytopenia, unspecified; N31.9 Neuromuscular dysfunction of bladder, unspecified; Z96.89 Presence of other specified functional implants; Z99.3 Dependence on wheelchair; Z82.49 Family history of ischemic heart disease and other diseases of the circulatory system; Z88.6 Allergy status to analgesic agent; Z88.5 Allergy status to narcotic agent; Z86.718 Personal history of other venous thrombosis and embolism; T14.8XXS Other injury of unspecified body region, sequela; Z87.820 Personal history of traumatic brain injury; V89.2XXA Person injured in unspecified motor-vehicle accident, traffic, initial encounter; Y92.9 Unspecified place or not applicable
CPT/HCPCS: 36415; 36600; 71045; 71275; 74176; 76700; 76857; 80048; 80053; 80076; 81003; 81015; 82803; 83605; 83690; 83735; 83880; 84100; 84484; 85025; 85060; 85610; 85730; 86140; 87040; 87077; 87086; 87186; 87205; 87641; 87899; 93005; 93306; 94640; 94660; 99284; A9270-GY; J0696; J1170; J1940; J2185; J2405; J2543; J3370; J3475; J3480; J3490; Q9967